=== PATIENT | male | born 1965 | race Caucasian/White ===

== ENCOUNTER 2019-01-04 16:18 | Emergency (ER) | payer OTHER ==
[~2019-01-04] VITALS: Ht 170.1 cm; Wt 79.4 kg
[~2019-01-04 16:18] MED LIST: PAXIL10 MG PO
[2019-01-04 17:02] LABS: BASO # 0.1 10*3/uL (0.0-0.1); BASO % 0.7 % (0.0-1.0); EOS # 0.2 10*3/uL (0.0-0.4); EOS % 2.3 % (1.0-4.0); HEMATOCRIT 42.9 % (42.0-52.0); HEMOGLOBIN 14.6 g/dl (14.0-18.0); LYMPH # 1.9 10*3/uL (1.3-4.4); LYMPH % 26.2 % (27.0-41.0); MEAN CELL VOLUME 93.1 fl (80.0-94.0); MEAN CORPUSCULAR HGB 31.7 pg (27.0-31.0); MEAN PLATELET VOLUME 9.8 fl (9.6-12.3); MONO # 0.4 10*3/uL (0.1-1.0); NEUT # 4.7 10*3/uL (2.3-7.9); NEUT % 64.4 % (47.0-73.0); PLATELET COUNT AUTOMATED 264 10*3/uL (130-400); RED BLOOD COUNT 4.61 10*6/uL (4.50-5.90); RED CELL DISTRI WIDTH 12.7 % (0-14.5); WHITE BLOOD COUNT 7.3 10*3/uL (4.8-10.8)
[2019-01-04 17:19] LABS: ACT PARTIAL THROMBO TIME 24.6 SECONDS (20.0-32.1); INTERNATIONAL NORM RATIO 0.9 (2.0-3.5)
[2019-01-04 17:35] LABS: BUN 9 mg/dl (7-24); CHLORIDE 108 mmol/L (98-107); CREATININE 0.88 mg/dL (0.70-1.30); SODIUM 143 mmol/L (136-145)
== END 2019-01-04 17:35 | disposition home or self-care (01) ==
LOC: ED 16:18
PROVIDERS: Nurse Practitioner Family
DX: M62.462 Contracture of muscle, left lower leg (principal); Z79.899 Other long term (current) drug therapy

== ENCOUNTER → 2021-05-14 | Outpatient (CLI) | payer BC | END | disposition home or self-care (01) | LOC: COVID19 15:08 | PROVIDERS: ATTEND Student in an Organized Health Care Education/Training Program | DX: U07.1 COVID-19 (principal) ==

== ENCOUNTER 2022-03-20 15:12 | Emergency (ER) | payer BC ==
[~2022-03-20] VITALS: Wt 78.5 kg
[2022-03-20] MEDS ORDERED: PREDNISONE20 M1 PO (20:29)
[2022-03-20] MEDS ORDERED: AMOX-CLAV 875-1 EACH PO (20:29)
[2022-03-20] MEDS ORDERED: PROVENTIL HFA6.7 GM INH (20:29)
== END 2022-03-20 20:34 | disposition home or self-care (01) ==
LOC: ED 15:12
DX: J32.8 Other chronic sinusitis (principal); Z20.822 Contact with and (suspected) exposure to COVID-19; R05.9 Cough, unspecified; Z79.899 Other long term (current) drug therapy

== ENCOUNTER 2023-04-09 17:33 | Emergency (ER) | payer BC ==
[~2023-04-09] VITALS: Ht 167.6 cm; Wt 81.6 kg
[~2023-04-09 17:33] MED LIST changes: +AMOX-CLAV 875-1 EACH PO; +PREDNISONE20 M1 PO; +PROVENTIL HFA6.7 GM INH
[2023-04-09] MEDS ORDERED: PAXIL20 M1 PO (17:50)
[2023-04-09] MEDS ORDERED: METOPROLOL SUCC25 M2 PO (17:51)
[2023-04-09] MEDS ORDERED: ONDANSETRON4 MG SL (19:32)
== END 2023-04-09 19:40 | disposition home or self-care (01) ==
LOC: ED 17:33
DX: B34.9 Viral infection, unspecified (principal); R51.9 Headache, unspecified; I10 Essential (primary) hypertension; F32.A Depression, unspecified; Z98.890 Other specified postprocedural states; Z20.822 Contact with and (suspected) exposure to COVID-19